=== PATIENT | female | born 1980 | race Caucasian/White ===

== ENCOUNTER 2017-04-28 18:22 | Inpatient (IN) | payer MEDICAID, OTHER ==
[~2017-04-28] VITALS: Ht 165.1 cm; Wt 84.4 kg
[~2017-04-28 18:22] MED LIST: METF500T4 PO
[2017-04-28] MEDS ORDERED: FLUO-191 PO (18:40)
[2017-04-28] MEDS ORDERED: ALBU8HFA4 IH (18:40)
[2017-04-28] MEDS ORDERED: SODIUM CHLORIDE 0.9% 1,000 ML IV ONE (18:45)
[2017-04-28 19:07] LABS: BASOPHILS % (AUTO) 0.6 % (0.0-2.0); EOSINOPHILS % (AUTO) 1.8 % (1.0-6.0); HEMOGLOBIN 13.3 g/dL (12.0-16.0); LYMPHOCYTES # (AUTO) 2.7 K/uL (1.0-4.8); LYMPHOCYTES % (AUTO) 23.2 % (22.0-44.0); MEAN CORPUSCULAR HEMOGLOBIN 30.4 pg (26.0-34.0); MEAN CORPUSCULAR HGB CONC 34.2 G/dL (31.0-37.0); MEAN CORPUSCULAR VOLUME 89 fL (80-100); MONOCYTES # (AUTO) 0.8 K/uL (0.1-1.0); MONOCYTES % (AUTO) 6.6 % (2.0-9.0); NEUTROPHILS % (AUTO) 67.8 % (40.0-70.0); PLATELET COUNT (AUTO) 327 K/uL (150-450); RED BLOOD CELL COUNT(AUTO) 4.39 MIL/uL (4.00-5.20); RED CELL DISTRIBUTION WIDTH 11.9 % (11.5-14.5); WHITE BLOOD COUNT (AUTO) 11.8 K/uL (4.5-11.0)
[2017-04-28 19:16] LABS: ANION GAP 12 mmol/L (8-16); CARBON DIOXIDE 26 mmol/L (22-29); CHLORIDE 98 mmol/L (98-107); CREATININE 0.79 mg/dL (0.60-1.30); GLOMERULAR FILTR. RATE CALC > 60 mL/min (>60); POTASSIUM 3.4 mmol/L (3.5-5.1); SODIUM SERUM 136 mmol/L (136-145); UREA NITROGEN, BLOOD 7 mg/dL (7-18)
[2017-04-28 19:21] LABS: ALANINE AMINOTRANSFERASE 56 U/L (12-78); ALBUMIN 3.3 g/dL (3.4-5.0); ASPARTATE AMINOTRANSFERASE 24 U/L (15-37); BILIRUBIN,TOTAL 0.3 mg/dL (0.1-1.0); TOTAL PROTEIN, SERUM 7.5 g/dL (6.4-8.2)
[2017-04-28 20:47] LABS: GLUCOSE COMMENT 1 Received Meds; GLUCOSE,POINT OF CARE 275 MG/DL (70-110)
[2017-04-28] MEDS ORDERED: POTASSIUM CHLORIDE 20 MEQ ER TABLET PO ONE (21:00)
[2017-04-28] MEDS ORDERED: LORazepam 2 MG TABLET PO PRN (21:15)
[2017-04-28] MEDS ORDERED: HALOPERIDOL 5 MG TABLET PO PRN (21:15)
[2017-04-28] MEDS ORDERED: ZOLPIDEM TARTRATE 10 MG TABLET PO PRN (21:15)
[2017-04-28 21:29] VITALS: BP 124/89
[2017-04-28 21:42] LABS: GLUCOSE,POINT OF CARE 272 MG/DL (70-110)
[2017-04-28] MEDS ORDERED: DEXTROSE 50%-WATER 25 GM/50 ML SYRINGE IVP PRN (21:45)
[2017-04-28 21:51] VITALS: BP 109/73
[2017-04-28] MEDS ORDERED: MetFORMIN HCL 850 MG TABLET PO SCH (21:58)
[2017-04-28] MEDS ORDERED: ALBUTEROL SULFATE HFA 90 MCG/PUFF 8 GM INHALER IH PRN (22:00)
[2017-04-28] MEDS ORDERED: MetFORMIN HCL 500 MG TABLET PO SCH (22:59)
[2017-04-28 23:28] LABS: APPEARANCE,URINE CLOUDY (CLEAR); GLUCOSE, URINE (UA) >=1000 mg/dL (NEGATIVE); KETONES,URINE TRACE mg/dL (NEGATIVE); LEUKOCYTE ESTERASE ,URINE NEGATIVE (NEGATIVE); OCCULT BLOOD,URINE NEGATIVE (NEGATIVE); PROTEIN,URINE TRACE (NEGATIVE)
[2017-04-28 23:32] LABS: ADD UA MICROSCOPIC YES; RBC,URINE 0-2 /HPF (0-2); SQUAMOUS EPITHELIAL CELL,UR Many /LPF (None Seen)
[2017-04-29 02:17] VITALS: BP 110/62
[2017-04-29 05:57] LABS: GLUCOSE,POINT OF CARE 264 MG/DL (70-110)
[2017-04-29] MEDS: INSULIN ASPART 100 UNITS/ML SQ PRN ×2 (07:13→18:17)
[2017-04-29] MEDS ORDERED: MetFORMIN HCL 850 MG TABLET PO SCH (07:30)
[2017-04-29 07:36] LABS: CHOL/HDL RATIO 7.7 (3.9-5.7)
[2017-04-29 09:22] VITALS: BP 121/62
[2017-04-29 16:48] VITALS: BP 144/86
[2017-04-29 17:32] LABS: GLUCOSE,POINT OF CARE 261 MG/DL (70-110)
[2017-04-29] MEDS: GEMFIBROZIL 600 MG TABLET PO SCH (17:36)
[2017-04-29] MEDS: MetFORMIN HCL 500 MG TABLET PO SCH (17:36)
[2017-04-29] MEDS: INSULIN GLARGINE,HUM.REC.ANLOG 100 UNITS/ML SQ SCH (22:44)
[2017-04-29 22:47] LABS: GLUCOSE,POINT OF CARE 177 MG/DL (70-110)
[2017-04-30 05:39] LABS: GLUCOSE COMMENT 1 Received Meds; GLUCOSE,POINT OF CARE 193 MG/DL (70-110)
[2017-04-30] MEDS: MetFORMIN HCL 500 MG TABLET PO SCH ×2 (06:57→17:14)
[2017-04-30] MEDS: GEMFIBROZIL 600 MG TABLET PO SCH ×2 (06:57→17:14)
[2017-04-30] MEDS: INSULIN ASPART 100 UNITS/ML SQ PRN ×2 (07:04→17:48)
[2017-04-30 09:06] VITALS: BP 137/73
[2017-04-30] MEDS: FISH OIL/OMEGA-3 FATTY ACIDS 500 MG CAPSULE PO SCH (10:58)
[2017-04-30] MEDS: FLUoxetine HCL 20 MG CAPSULE PO SCH (10:58)
[2017-04-30] MEDS: ACETAMINOPHEN 325 MG TABLET PO PRN (13:23)
[2017-04-30] MEDS ORDERED: LOPERAMIDE HCL 2 MG CAPSULE PO PRN (13:45)
[2017-04-30 16:32] LABS: GLUCOSE,POINT OF CARE 265 MG/DL (70-110)
[2017-04-30 16:44] VITALS: BP 127/90
[2017-04-30] MEDS: DIVALPROEX SODIUM 500 MG DR TABLET PO SCH (17:46)
[2017-04-30 20:33] LABS: GLUCOSE COMMENT 1 FASTING; GLUCOSE COMMENT 2 Received Meds; GLUCOSE,POINT OF CARE 210 MG/DL (70-110)
[2017-04-30] MEDS: INSULIN GLARGINE,HUM.REC.ANLOG 100 UNITS/ML SQ SCH (21:06)
[2017-05-01 04:25] VITALS: BP 121/76
[2017-05-01] MEDS: BENZOCAINE 10% TP PRN (04:27)
[2017-05-01] MEDS: ACETAMINOPHEN 325 MG TABLET PO PRN ×2 (04:28→09:17)
[2017-05-01] MEDS: MetFORMIN HCL 500 MG TABLET PO SCH ×2 (06:28→17:35)
[2017-05-01] MEDS: INSULIN ASPART 100 UNITS/ML SQ PRN ×2 (06:28→17:04)
[2017-05-01] MEDS: GEMFIBROZIL 600 MG TABLET PO SCH ×2 (06:28→17:02)
[2017-05-01 08:48] VITALS: BP 110/69
[2017-05-01] MEDS: DIVALPROEX SODIUM 500 MG DR TABLET PO SCH ×2 (09:14→17:02)
[2017-05-01] MEDS: FISH OIL/OMEGA-3 FATTY ACIDS 500 MG CAPSULE PO SCH (09:14)
[2017-05-01] MEDS: FLUoxetine HCL 20 MG CAPSULE PO SCH (09:14)
[2017-05-01 16:59] VITALS: BP 105/75
[2017-05-01] MEDS: INSULIN GLARGINE,HUM.REC.ANLOG 100 UNITS/ML SQ SCH (21:09)
[2017-05-02 00:44] VITALS: BP 149/81
[2017-05-02] MEDS: BENZOCAINE 10% TP PRN (00:46)
[2017-05-02] MEDS: MetFORMIN HCL 500 MG TABLET PO SCH (06:42)
[2017-05-02] MEDS: GEMFIBROZIL 600 MG TABLET PO SCH (06:43)
[2017-05-02] MEDS: INSULIN ASPART 100 UNITS/ML SQ PRN (06:44)
[2017-05-02 08:42] VITALS: BP 124/82
[2017-05-02] MEDS: DIVALPROEX SODIUM 500 MG DR TABLET PO SCH (09:36)
[2017-05-02] MEDS: FISH OIL/OMEGA-3 FATTY ACIDS 500 MG CAPSULE PO SCH (09:36)
[2017-05-02] MEDS: FLUoxetine HCL 20 MG CAPSULE PO SCH (09:37)
[2017-05-02] MEDS ORDERED: GEMF600T3 PO (13:53)
[2017-05-02] MEDS ORDERED: FISH1 PO (13:53)
[2017-05-02] MEDS ORDERED: INSLAN SQ (13:54)
[2017-05-02] MEDS ORDERED: DIVA500T35 PO (13:54)
[2017-05-03 09:36] LABS: GLUCOSE COMMENT 1 Received Meds; GLUCOSE,POINT OF CARE 170 MG/DL (70-110)
[2017-05-03 19:08] LABS: GLUCOSE COMMENT 1 Received Meds; GLUCOSE,POINT OF CARE 188 MG/DL (70-110)
[2017-05-03 19:08] LABS: GLUCOSE COMMENT 1 Received Meds; GLUCOSE,POINT OF CARE 175 MG/DL (70-110)
[2017-05-03 20:56] LABS: GLUCOSE COMMENT 1 FASTING; GLUCOSE COMMENT 2 Received Meds; GLUCOSE,POINT OF CARE 168 MG/DL (70-110)
== END 2017-05-02 15:40 | disposition home or self-care (01) | DRG 750 ==
LOC: EMS 18:24 → 3EI 20:43
PROVIDERS: ADMIT Psychiatry & Neurology Psychiatry; ATTEND Psychiatry & Neurology Psychiatry
DX: F25.9 Schizoaffective disorder, unspecified (principal); R45.851 Suicidal ideations; E11.65 Type 2 diabetes mellitus with hyperglycemia; E66.01 Morbid (severe) obesity due to excess calories; F41.9 Anxiety disorder, unspecified; F32.9 Major depressive disorder, single episode, unspecified; J45.909 Unspecified asthma, uncomplicated; K21.9 Gastro-esophageal reflux disease without esophagitis; F15.90 Other stimulant use, unspecified, uncomplicated; E78.5 Hyperlipidemia, unspecified; Z90.49 Acquired absence of other specified parts of digestive tract; Z88.6 Allergy status to analgesic agent; Z79.84 Long term (current) use of oral hypoglycemic drugs; Z79.899 Other long term (current) drug therapy; Z98.891 History of uterine scar from previous surgery; Z71.51 Drug abuse counseling and surveillance of drug abuser; Z68.31 Body mass index [BMI] 31.0-31.9, adult
CPT/HCPCS: 82962; 96360; 96361; 99285; G0480; J1815; J3535; J7030

== ENCOUNTER 2018-09-07 17:12 | Emergency (ER) | payer MEDICAID, OTHER ==
[~2018-09-07] VITALS: Ht 165.1 cm; Wt 85.0 kg
[~2018-09-07 17:12] MED LIST changes: +DIVA-78 PO; +FISH1 PO; +FLUO-191 PO; +GEMF600T5 PO; +INSLAN SQ; +METF-960 PO; -METF500T4 PO
[2018-09-07 17:29] LABS: GLUCOSE,POINT OF CARE 295 MG/DL (70-110)
[2018-09-07 19:16] LABS: BASOPHILS % (AUTO) 0.8 % (0.0-2.0); HEMATOCRIT 38.5 % (36-46); HEMOGLOBIN 13.3 g/dL (12.0-16.0); LYMPHOCYTES # (AUTO) 4.1 K/uL (1.0-4.8); MEAN CORPUSCULAR HEMOGLOBIN 30.5 pg (26.0-34.0); MEAN CORPUSCULAR HGB CONC 34.5 G/dL (31.0-37.0); MEAN CORPUSCULAR VOLUME 88 fL (80-100); MONOCYTES % (AUTO) 8.3 % (2.0-9.0); NEUTROPHILS # (AUTO) 6.9 K/uL (1.8-7.7); NEUTROPHILS % (AUTO) 54.9 % (40.0-70.0); PLATELET COUNT (AUTO) 302 K/uL (150-450); RED BLOOD CELL COUNT(AUTO) 4.36 MIL/uL (4.00-5.20); RED CELL DISTRIBUTION WIDTH 12.5 % (11.5-14.5)
[2018-09-07] MEDS ORDERED: ACETAMINOPHEN 325 MG TABLET PO ONE (20:15)
[2018-09-07 21:30] VITALS: BP 124/68
== END 2018-09-07 22:16 | disposition home or self-care (01) ==
LOC: EMS 17:13
DX: O20.9 Hemorrhage in early pregnancy, unspecified (principal); O99.511 Diseases of the respiratory system complicating pregnancy, first trimester; O99.341 Other mental disorders complicating pregnancy, first trimester; F41.8 Other specified anxiety disorders; E11.9 Type 2 diabetes mellitus without complications; E66.01 Morbid (severe) obesity due to excess calories; F32.9 Major depressive disorder, single episode, unspecified; K21.9 Gastro-esophageal reflux disease without esophagitis; J45.909 Unspecified asthma, uncomplicated; Z88.6 Allergy status to analgesic agent; Z79.84 Long term (current) use of oral hypoglycemic drugs; Z79.4 Long term (current) use of insulin; Z3A.01 Less than 8 weeks gestation of pregnancy; Z68.31 Body mass index [BMI] 31.0-31.9, adult; Z90.49 Acquired absence of other specified parts of digestive tract
CPT/HCPCS: 76801; 76817; 86901

== ENCOUNTER 2018-09-29 20:14 | Emergency (ER) | payer OTHER ==
[~2018-09-29] VITALS: Ht 165.1 cm; Wt 72.7 kg
[2018-09-29 21:24] LABS: GLUCOSE,POINT OF CARE 359 MG/DL (70-110)
[2018-09-29 23:44] LABS: APPEARANCE,URINE CLEAR (CLEAR); BILIRUBIN,URINE NEGATIVE (NEGATIVE); GLUCOSE, URINE (UA) >=1000 mg/dL (NEGATIVE); KETONES,URINE TRACE mg/dL (NEGATIVE); LEUKOCYTE ESTERASE ,URINE NEGATIVE (NEGATIVE); NITRATE,URINE NEGATIVE (NEGATIVE); OCCULT BLOOD,URINE NEGATIVE (NEGATIVE); PROTEIN,URINE NEGATIVE (NEGATIVE); UROBILINOGEN,URINE 0.2 mg/dL (<=1.0)
[2018-09-29 23:56] LABS: RBC,URINE 0-2 /HPF (0-2); WBC,URINE 0-2 /HPF (0-5)
[2018-09-29 23:57] LABS: BACTERIA,URINE Few /HPF (None Seen); SQUAMOUS EPITHELIAL CELL,UR Moderate /LPF (None Seen)
[2018-09-30] MEDS ORDERED: ACETAMINOPHEN 500 MG TABLET PO ONE (00:15)
[2018-09-30 00:26] VITALS: BP 135/67
== END 2018-09-30 00:29 | disposition home or self-care (01) ==
LOC: EMS 20:15
DX: M79.672 Pain in left foot (principal); M79.671 Pain in right foot; E11.9 Type 2 diabetes mellitus without complications; E66.01 Morbid (severe) obesity due to excess calories; J45.909 Unspecified asthma, uncomplicated; K21.9 Gastro-esophageal reflux disease without esophagitis; F32.9 Major depressive disorder, single episode, unspecified; F41.9 Anxiety disorder, unspecified; Z88.6 Allergy status to analgesic agent; Z79.899 Other long term (current) drug therapy; Z79.4 Long term (current) use of insulin; Z90.49 Acquired absence of other specified parts of digestive tract; Z68.26 Body mass index [BMI] 26.0-26.9, adult

== ENCOUNTER 2018-12-02 23:56 | Emergency (ER) | payer OTHER ==
[~2018-12-02] VITALS: Ht 165.1 cm; Wt 72.7 kg
[2018-12-03 00:22] VITALS: BP 142/74
[2018-12-03] MEDS ORDERED: PNV11TAB PO (00:24)
[2018-12-03 00:34] LABS: GLUCOSE,POINT OF CARE 249 MG/DL (70-110)
[2018-12-03 02:09] LABS: BASOPHILS % (AUTO) 0.8 % (0.0-2.0); EOSINOPHILS % (AUTO) 1.4 % (1.0-6.0); HEMATOCRIT 38.8 % (36-46); HEMOGLOBIN 13.3 g/dL (12.0-16.0); LYMPHOCYTES # (AUTO) 4.7 K/uL (1.0-4.8); MEAN CORPUSCULAR HEMOGLOBIN 30.1 pg (26.0-34.0); MEAN CORPUSCULAR HGB CONC 34.2 G/dL (31.0-37.0); MEAN CORPUSCULAR VOLUME 88 fL (80-100); MONOCYTES # (AUTO) 0.9 K/uL (0.1-1.0); MONOCYTES % (AUTO) 7.5 % (2.0-9.0); NEUTROPHILS # (AUTO) 5.6 K/uL (1.8-7.7); NEUTROPHILS % (AUTO) 49.3 % (40.0-70.0); PLATELET COUNT (AUTO) 362 K/uL (150-450); RED BLOOD CELL COUNT(AUTO) 4.41 MIL/uL (4.00-5.20); RED CELL DISTRIBUTION WIDTH 12.6 % (11.5-14.5)
[2018-12-03 03:12] LABS: APPEARANCE,URINE CLOUDY (CLEAR); BILIRUBIN,URINE NEGATIVE (NEGATIVE); GLUCOSE, URINE (UA) >=1000 mg/dL (NEGATIVE); KETONES,URINE TRACE mg/dL (NEGATIVE); LEUKOCYTE ESTERASE ,URINE NEGATIVE (NEGATIVE); NITRATE,URINE NEGATIVE (NEGATIVE); OCCULT BLOOD,URINE TRACE (NEGATIVE); PROTEIN,URINE NEGATIVE (NEGATIVE); UROBILINOGEN,URINE 0.2 mg/dL (<=1.0)
[2018-12-03 03:17] LABS: AMPHET/METH SCREEN,URINE POSITIVE (NEGATIVE); BARBITURATE SCREEN, URINE NEGATIVE (NEGATIVE); BENZODIAZEPINES SCREEN,URINE NEGATIVE (NEGATIVE); CANNABINOID SCREEN,URINE NEGATIVE (NEGATIVE); COCAINE SCREEN,URINE NEGATIVE (NEGATIVE); METHADONE SCREEN, URINE NEGATIVE (NEGATIVE); OPIATE SCREEN,URINE NEGATIVE (NEGATIVE); PHENCYCLIDINE SCREEN,URINE NEGATIVE (NEGATIVE)
[2018-12-03 03:26] LABS: BACTERIA,URINE Moderate /HPF (None Seen); SQUAMOUS EPITHELIAL CELL,UR Many /LPF (None Seen); WBC,URINE 0-2 /HPF (0-5); YEAST,URINE Few /HPF (None Seen)
== END 2018-12-03 02:15 | disposition left against medical advice (07) ==
LOC: EMS 23:57
DX: O20.9 Hemorrhage in early pregnancy, unspecified (principal); O26.891 Other specified pregnancy related conditions, first trimester; R10.9 Unspecified abdominal pain; J45.909 Unspecified asthma, uncomplicated; E11.9 Type 2 diabetes mellitus without complications; K21.9 Gastro-esophageal reflux disease without esophagitis; F41.9 Anxiety disorder, unspecified; F32.9 Major depressive disorder, single episode, unspecified; Z53.21 Procedure and treatment not carried out due to patient leaving prior to being seen by health care provider
CPT/HCPCS: 76801; 76817; 86901; 87086